=== PATIENT | male | born 1950 | race Caucasian/White ===

== ENCOUNTER 2023-09-10 09:50 | Outpatient (CLI) | payer MEDICARE, OTHER ==
--- NOTE | 2023-09-10 19:54 | XRAY Report ---
PROCEDURE: Lumbar Spine 2-3V INDICATIONS: LOW BACK PAIN TECHNIQUE: 3 view(s) of the lumbar spine were acquired. COMPARISON: None. FINDINGS: Bones: Vertebral body height and alignment is maintained. No suspicious bony lesions. Disc space gloria rowing and hypertrophic facet joints present throughout the exam particularly lower lumbar spine asso ciated with grade 1 anterior spinal listhesis L4-5. Soft tissues: Overlying bowel gas pattern is normal. No suspicious soft tissue calcifications. IMPRESSION: Degenerative disc disease, arthropathy and grade 1 anterior spinal listhesis L4-5 Reviewed by: Hilario Magana MD on 09/10/2023 6:52 PM AKST Approved by: Hilario Magana MD on 09/10/2023 6:52 PM AKST Station ID: [id number]
== END 2023-09-10 09:51 | disposition home or self-care (01) ==
LOC: DI.S 09:50
PROVIDERS: ATTEND Emergency Medicine
DX: M47.816 Spondylosis without myelopathy or radiculopathy, lumbar region (principal); M51.36 Other intervertebral disc degeneration, lumbar region; M43.16 Spondylolisthesis, lumbar region